=== PATIENT | male | born 1995 ===

== ENCOUNTER 2018-04-26 07:16 | Emergency (ER) | payer OTHER ==
[~2018-04-26] VITALS: Ht 165.1 cm; Wt 77.1 kg
== END 2018-04-26 08:32 | disposition home or self-care (01) ==
LOC: ER 07:16
DX: J35.01 Chronic tonsillitis (principal)

== ENCOUNTER 2020-02-18 17:45 | Emergency (ER) | payer OTHER ==
[~2020-02-18] VITALS: Ht 165.1 cm; Wt 90.7 kg
== END 2020-02-18 20:58 | disposition home or self-care (01) ==
LOC: ER 17:45
DX: M62.830 Muscle spasm of back (principal); M54.5 Low back pain